=== PATIENT | female | born 1965 | race Caucasian/White ===

== ENCOUNTER 2018-06-10 16:13 | Emergency (ER) | payer BC ==
[~2018-06-10] VITALS: Ht 162.6 cm; Wt 77.1 kg
[2018-06-10 16:17] VITALS: BP_SYST 171
[2018-06-10 17:24] LABS: ANION GAP 10 (5-15); BASOPHILS # (AUTO) 0.1 K/uL (0.0-0.2); BASOPHILS % (AUTO) 1.1 % (0.0-2.0); CALCIUM 9.3 mg/dL (8.4-11.0); CHLORIDE 104 mmol/L (98-107); CREATININE 0.76 mg/dL (0.55-1.30); EOSINOPHILS # (AUTO) 0.1 K/uL (0.0-0.4); EOSINOPHILS % (AUTO) 1.3 % (0.0-4.0); GLUCOSE 114 mg/dL (70-99); HEMATOCRIT 41.1 % (36-48); HEMOGLOBIN 14.2 g/dL (12.0-16.0); LYMPHOCYTES % (AUTO) 28.9 % (20.5-51.5); MEAN CORPUSCULAR HEMOGLOBIN 31 pg (27-31); MEAN CORPUSCULAR HGB CONC 35 % (32-36); MEAN CORPUSCULAR VOLUME 90 fL (79.0-98.0); MONOCYTES # (AUTO) 0.4 K/uL (0.0-1.0); MONOCYTES % (AUTO) 5.4 % (1.7-9.3); NEUTROPHILS # (AUTO) 4.4 K/uL (1.8-7.7); NEUTROPHILS % (AUTO) 63.3 % (40.0-70.0); PLATELET COUNT (AUTO) 345 K/uL (130-430); POTASSIUM 3.4 mmol/L (3.5-5.1); RED BLOOD CELL COUNT(AUTO) 4.54 MIL/uL (4.2-6.2); RED CELL DISTRIBUTION WIDTH 11.7 % (9.0-15.0); SODIUM SERUM 140 mmol/L (136-145); UREA NITROGEN, BLOOD 12 mg/dL (8-21)
[2018-06-10 17:27] LABS: GFR AFRICAN AMERICAN 103 mL/min (>90)
[2018-06-10 17:32] LABS: ALANINE AMINOTRANSFERASE 21 U/L (12-78); ALBUMIN 3.9 g/dL (3.4-4.8); ASPARTATE AMINOTRANSFERASE 16 U/L (10-37); TOTAL BILIRUBIN 0.3 mg/dL (0.0-1.0)
--- NOTE | 2018-06-10 17:36 | NUR ---
Patient to ER bed 4 to gown for evaluation. Side rails up. Report given to Erik BYRNE.
--- NOTE | 2018-06-10 17:40 | NUR ---
Patient to ER via triage with c/o right chest pressure, which is worse with movement. Patient is awake, alert and oriented in no acute distress, BP elevated-but vital signs otherwise stable, respirations even and unlabored, skin warm and dry to touch. EKG done while in triage, shows ST with no acute changes. Awaiting evaluation by ER MD, will continue to observe and assess.
--- NOTE | 2018-06-10 17:50 | NUR ---
Dr Roque at bedside to evaluate patient.
--- NOTE | 2018-06-10 18:33 | NUR ---
Patient given written and verbal discharge instructions and verbalizes understanding. ER MD discussed with patient the results and treatment provided. Patient in stable condition. ID arm band removed. Rx of Naprosyn given. Patient educated on pain management and to follow up with PMD. Pain Scale 3/10. Opportunity for questions provided and answered. Medication side effect fact sheet provided.
[2018-06-10 18:34] VITALS: BP_SYST 137
== END 2018-06-10 18:34 | disposition home or self-care (01) ==
LOC: SED 16:13
DX: R07.89 Other chest pain (principal); I10 Essential (primary) hypertension; Z88.1 Allergy status to other antibiotic agents
CPT/HCPCS: 36415; 71045; 80053; 81025; 84484; 85025; 93005; 99285